=== PATIENT | female | born 1960 | race Caucasian/White ===

== ENCOUNTER 2017-07-18 18:38 | Emergency (ER) | payer MEDICAID ==
[~2017-07-18] VITALS: Ht 149.9 cm; Wt 74.8 kg
[~2017-07-18 18:38] MED LIST: ACYCLOVIR 400400 MG; AMITRIPTYLINE H25 M2 PO; AMOXICILLIN500 M1 PO; ASA5UEC PO; ASPIR 8181 MG PO; BACTRIM DS TAB1 EACH PO; COMPLETE MULTI1 EAC3 PO; FAMVIR250 MG PO; FISH OIL 1,2001 EAC4 PO; FLEXERIL PO; GLUCOSAMINE &1 EAC1 PO; HYDROCODONE-AP1 EAC6 PO; IBUPROFEN 800800 M1 PO; KEFLEX500 MG PO; LIDOCAINE HCL 210 M1 TOP; LIPITOR 20 MG T20 M1 PO; MEDROLDOSEPACK PO; METFORMIN HCL500 MG PO; NORCO 5-325 TA1 EACH; NORCO 5-325 TA1 EACH PO; NYAMYC15 GM TOP; PERCOCET PO; ROBAXIN 750 MG750 M1 PO; SIMVASTATIN40 MG PO; TRAMADOL 50 MG50 MG PO; VITAMIN D1000 UNI1 PO; WELLBUTRIN SR150 MG PO
[2017-07-18] MEDS ORDERED: VITAMINC500 PO (18:52)
[2017-07-18] MEDS ORDERED: FISH OIL 1,001000 M2 PO (18:52)
[2017-07-18] MEDS ORDERED: NAPROSYN500 MG PO (19:49)
[2017-07-18] MEDS ORDERED: TRAMADOL 50 MG50 MG PO (19:49)
[2017-07-18 20:01] VITALS: BP 110/73
== END 2017-07-18 20:02 | disposition home or self-care (01) ==
LOC: M.ERS 18:38
DX: M25.462 Effusion, left knee (principal); S83.8X2A Sprain of other specified parts of left knee, initial encounter; G43.909 Migraine, unspecified, not intractable, without status migrainosus; E78.5 Hyperlipidemia, unspecified; F41.9 Anxiety disorder, unspecified; E11.9 Type 2 diabetes mellitus without complications; F17.210 Nicotine dependence, cigarettes, uncomplicated; Z88.7 Allergy status to serum and vaccine; X50.1XXA Overexertion from prolonged static or awkward postures, initial encounter; Y93.89 Activity, other specified; Y92.89 Other specified places as the place of occurrence of the external cause; Y99.8 Other external cause status

== ENCOUNTER → 2018-02-26 | Outpatient (CLI) | payer OTHER, MEDICAID ==
[~2018-02-26] MED LIST changes: +FISH OIL 1,001000 M2 PO; +NAPROSYN500 MG PO; +VITAMINC500 PO
== END ==
LOC: M.RAD 09:35
DX: M25.512 Pain in left shoulder (principal)

== ENCOUNTER 2018-08-23 17:30 | Emergency (ER) | payer OTHER, MEDICAID ==
[~2018-08-23] VITALS: Ht 149.9 cm; Wt 78.9 kg
[2018-08-23] MEDS ORDERED: VITAMIN D1000 UNI1 PO (17:47)
[2018-08-23] MEDS ORDERED: HYDROCODON-ACE1 EAC7 PO (17:48)
[2018-08-23 20:31] LABS: URINE BILIRUBIN NEGATIVE (Negative); URINE BLOOD NEGATIVE (Negative); URINE CLARITY CLEAR; URINE COLOR YELLOW; URINE GLUCOSE-RANDOM NEGATIVE (Negative); URINE KETONES NEGATIVE (Negative); URINE LEUKOCYTES-REFLEX NEGATIVE (Negative); URINE NITRITE-REFLEX NEGATIVE (Negative); URINE PROTEIN NEGATIVE (Negative)
[2018-08-23] MEDS ORDERED: ROBAXIN 750 MG750 M1 PO (20:36)
[2018-08-23] MEDS ORDERED: MEDROLDOSEPACK PO (20:36)
[2018-08-23 20:52] VITALS: BP 125/78
== END 2018-08-23 20:52 | disposition home or self-care (01) ==
LOC: M.ERS 17:30
PROVIDERS: Nurse Practitioner Family
DX: S39.012A Strain of muscle, fascia and tendon of lower back, initial encounter (principal); F17.210 Nicotine dependence, cigarettes, uncomplicated; G43.909 Migraine, unspecified, not intractable, without status migrainosus; E78.5 Hyperlipidemia, unspecified; F41.9 Anxiety disorder, unspecified; E11.9 Type 2 diabetes mellitus without complications; Z88.7 Allergy status to serum and vaccine; X58.XXXA Exposure to other specified factors, initial encounter; Y92.89 Other specified places as the place of occurrence of the external cause; Y93.89 Activity, other specified; Y99.8 Other external cause status

== ENCOUNTER 2019-06-18 18:55 | Emergency (ER) | payer OTHER ==
[~2019-06-18] VITALS: Ht 149.9 cm; Wt 78.9 kg
[~2019-06-18 18:55] MED LIST changes: +HYDROCODON-ACE1 EAC7 PO
[2019-06-18] MEDS ORDERED: ZANAFLEX4 M1 PO (19:29)
[2019-06-18] MEDS ORDERED: NORCO 5-325 TA1 EAC1 PO (21:17)
[2019-06-18 21:40] VITALS: BP 128/86
== END 2019-06-18 21:41 | disposition home or self-care (01) ==
LOC: M.ERS 18:55
DX: S96.811A Strain of other specified muscles and tendons at ankle and foot level, right foot, initial encounter (principal); E11.9 Type 2 diabetes mellitus without complications; E78.5 Hyperlipidemia, unspecified; G43.909 Migraine, unspecified, not intractable, without status migrainosus; F41.9 Anxiety disorder, unspecified; F17.210 Nicotine dependence, cigarettes, uncomplicated; Z88.7 Allergy status to serum and vaccine; X58.XXXA Exposure to other specified factors, initial encounter; Y93.89 Activity, other specified; Y92.89 Other specified places as the place of occurrence of the external cause; Y99.8 Other external cause status